=== PATIENT | female | born 1970 | race Caucasian/White ===

== ENCOUNTER 2021-05-18 18:48 | Emergency (ER) | payer MEDICARE ==
[~2021-05-18] VITALS: Ht 167.6 cm; Wt 98.0 kg
[2021-05-18 20:15] LABS: URINE HCG NEGATIVE (NEG)
[2021-05-18 20:20] LABS: URINE AMPHETAMINE SCREEN POSITIVE (Neg); URINE BARBITUATE SCREEN NEGATIVE (Neg); URINE BENZODIAZEPINES SCREEN NEGATIVE (Neg); URINE CANNABINOID SCREEN POSITIVE (Neg); URINE COCAINE SCREEN NEGATIVE (Neg); URINE METHADONE SCREEN NEGATIVE (Neg); URINE OPIATE SCREEN NEGATIVE (Neg); URINE PHENCYCLIDINE SCREEN NEGATIVE (Neg)
[2021-05-18 20:38] LABS: BASOPHILS # (AUTO) 0.1 X10'3 (0-0.2); BASOPHILS % (AUTO) 0.8 % (0-1); EOSINOPHILS # (AUTO) 0.3 X10'3 (0-0.9); EOSINOPHILS % (AUTO) 3.7 % (0-6); HEMATOCRIT 41.5 % (35.0-45.0); LYMPHOCYTES # (AUTO) 2.7 X10'3 (1.1-4.8); LYMPHOCYTES % (AUTO) 30.1 % (21-51); MEAN CORPUSCULAR HEMOGLOBIN 31.4 PG (27.0-31.0); MEAN CORPUSCULAR HGB CONC 33.7 g/dL (33.0-36.5); MEAN CORPUSCULAR VOLUME 93.1 FL (78-98); MEAN PLATELET VOLUME 7.8 FL (7.4-10.4); MONOCYTES # (AUTO) 1.2 X10'3 (0-0.9); MONOCYTES % (AUTO) 12.8 % (2-12); NEUTROPHILS # (AUTO) 4.8 X10'3 (1.8-7.7); NEUTROPHILS % (AUTO) 52.6 % (42-75); PLATELET COUNT 286 X10'3 (140-440); RED BLOOD COUNT 4.46 X10'6 (4.20-5.60); RED CELL DISTRIBUTION WIDTH 13.3 % (11.5-14.5)
[2021-05-18 20:54] LABS: ALANINE AMINOTRANSFERASE 24 U/L (12-78); ALBUMIN 3.1 G/DL (3.4-5.0); ALBUMIN/GLOBULIN RATIO 0.8 (1.1-1.5); ALKALINE PHOSPHATASE 67 IU/L (46-116); ANION GAP 8 (8-16); ASPARTATE AMINO TRANSFERASE 18 U/L (10-37); BILIRUBIN,TOTAL 0.1 MG/DL (0.1-1.0); BLOOD UREA NITROGEN 16 MG/DL (7-18); BUN/CREATININE RATIO 20.8 (6.6-38.0); CHLORIDE 105 MMOL/L (99-107); CREATININE 0.77 MG/DL (0.40-0.90); GLUCOSE 99 MG/DL (70-104); POTASSIUM 3.7 MMOL/L (3.5-5.1); SODIUM 143 MMOL/L (135-145); TOTAL CARBON DIOXIDE 30.5 MMOL/L (24-32); TOTAL PROTEIN 6.9 G/DL (6.4-8.2); eGFR 79 ML/MIN
[2021-05-18 21:03] LABS: ETHANOL < 0.010 GM/DL (0.0-0.010)
[2021-05-18 21:05] LABS: ACETAMINOPHEN < 2.0 UG/ML (10-30)
[2021-05-18] MEDS ORDERED: levoTHYROXINE 75mcg tablet PO STA (21:59)
--- NOTE | 2021-05-18 23:50 | NUR ---
patient appears to be resting comfortably in bueno bed. will CTM
[2021-05-19 00:07] VITALS: BP 138/37
--- NOTE | 2021-05-19 00:46 | NUR ---
patient appears to be sleeping with zero s+sx distress or pain
--- NOTE | 2021-05-19 01:30 | NUR ---
pt appears to be sleeping no distress
--- NOTE | 2021-05-19 02:16 | NUR ---
pt appears asleep no distress
--- NOTE | 2021-05-19 03:19 | NUR ---
patient resting in bed in hallway. no complaints.
--- NOTE | 2021-05-19 04:46 | NUR ---
pt appears asleep no distress
--- NOTE | 2021-05-19 06:45 | NUR ---
Ambulatory from ER no distress observed.
[2021-05-19] MEDS ORDERED: levoTHYROXINE 75mcg tablet PO SCH (07:00)
--- NOTE | 2021-05-19 08:45 | NUR ---
Pt. in bed eating breakfast, no distress
--- NOTE | 2021-05-19 10:45 | NUR ---
Pt. awake in bed and talking to pt. next to her, no s/sx of distress
[2021-05-19] MEDS ORDERED: PROG100C11 PO (11:21)
[2021-05-19] MEDS ORDERED: ESTR20VI4 IM (11:21)
--- NOTE | 2021-05-19 12:45 | NUR ---
Pt. sitting in bed awake, no signs of distress
--- NOTE | 2021-05-19 13:24 | NUR ---
Pt. discharged at 1324 all documentation completed.
[2021-05-19] MEDS ORDERED: progesterone, micronized 100mg capsule PO SCH (21:00)
== END 2021-05-19 13:24 | disposition home or self-care (01) ==
LOC: ER 18:49
DX: R45.851 Suicidal ideations (principal); Z20.822 Contact with and (suspected) exposure to COVID-19; E03.9 Hypothyroidism, unspecified; F32.9 Major depressive disorder, single episode, unspecified
CPT/HCPCS: 36415; 80053; 80305; 80320; 80329; 81025; 84443; 85025; 87635; 99285; C9803